=== PATIENT | male | born 1990 | race Asian ===

== ENCOUNTER 2020-07-14 18:12 | Emergency (ER) | payer OTHER ==
[~2020-07-14] VITALS: Ht 188 cm; Wt 111.1 kg
[2020-07-14 18:12] VITALS: BP 147/83
[2020-07-14] MEDS ORDERED: PROPARACAINE 0.5% OPHTH SOL 15ML OS ONE (20:00)
[2020-07-14] MEDS ORDERED: FLUORESCEIN OPHTH 1 MG STRIP OS ONE (20:00)
[2020-07-14] MEDS ORDERED: DICLOXACILLIN 250 MG CAP PO STA (20:13)
[2020-07-14] MEDS ORDERED: TOBRAMYCIN 0.3% OPHTH OINT 3.5 GM OS STA (20:13)
[2020-07-14] MEDS ORDERED: TOBR3OI OP (20:19)
[2020-07-14] MEDS ORDERED: DICL500C PO (20:19)
== END 2020-07-14 20:41 | disposition home or self-care (01) ==
LOC: M ED 18:14
DX: H00.016 Hordeolum externum left eye, unspecified eyelid (principal); L03.213 Periorbital cellulitis

== ENCOUNTER 2020-10-04 11:24 | Emergency (ER) | payer OTHER ==
[~2020-10-04] VITALS: Ht 182.9 cm; Wt 72.7 kg
[~2020-10-04 11:24] MED LIST: DICL500C PO; TOBR3OI OP
[2020-10-04] MEDS ORDERED: GI COCKTAIL 50ML BTL(HYOSCYAMINE/MAALOX/LIDOCAINE VISCOUS)(1:3:1) PO ONE (12:15)
[2020-10-04] MEDS ORDERED: ONDANSETRON 4 MG ORAL DISINTEGRATING TAB PO ONE (12:20)
[2020-10-04 12:59] LABS: BASO % 0.4 % (0.0-1.0); EOS # 0.1 10^3/uL (0.0-0.5); EOS % 0.4 % (0.0-3.0); HEMOGLOBIN 15.4 g/dl (13.5-17.5); LYMPH # 1.1 10^3/uL (1.5-5.0); LYMPH % 9.9 % (24.0-44.0); MEAN CORPUSCULAR HEMOGLOBIN 29.5 pg (27.0-33.0); MEAN CORPUSCULAR HGB CONC 32.1 g/dl (32.0-36.5); MONO # 0.7 10^3/uL (0.0-0.8); NEUTROPHILS # 9.3 10^3/uL (1.5-8.5); NEUTROPHILS % 82.5 % (36.0-66.0); PLATELET COUNT, AUTOMATED 246 10^3/uL (150-450); RED BLOOD COUNT 5.22 10^6/uL (4.30-6.10); WHITE BLOOD COUNT 11.3 10^3/uL (4.0-10.0)
[2020-10-04 13:43] LABS: ALT/SGPT 77 U/L (12-78); BILIRUBIN,DIRECT 0.1 MG/DL (0.0-0.2); BILIRUBIN,TOTAL 0.5 MG/DL (0.2-1.0); BLOOD UREA NITROGEN 13 MG/DL (7-18); CALCIUM LEVEL 9.1 MG/DL (8.5-10.1); CARBON DIOXIDE LEVEL 31 MEQ/L (21-32); CHLORIDE LEVEL 104 MEQ/L (98-107); CREATININE FOR GFR 0.82 MG/DL (0.70-1.30); GLOMERULAR FILTRATION RATE > 60.0 (>60); GLUCOSE, FASTING 120 MG/DL (70-100); LIPASE 59 U/L (73-393); POTASSIUM SERUM 4.6 MEQ/L (3.5-5.1); SODIUM LEVEL 139 MEQ/L (136-145); TOTAL PROTEIN 7.7 GM/DL (6.4-8.2)
[2020-10-04] MEDS ORDERED: ZOFR4TAB16 PO (13:51)
[2020-10-04 14:08] VITALS: BP 112/76
== END 2020-10-04 14:00 | disposition home or self-care (01) ==
LOC: M ED 11:24
DX: R11.2 Nausea with vomiting, unspecified (principal); T50.Z95A Adverse effect of other vaccines and biological substances, initial encounter; X58.XXXA Exposure to other specified factors, initial encounter; Y92.89 Other specified places as the place of occurrence of the external cause; G89.29 Other chronic pain; M54.9 Dorsalgia, unspecified; F17.210 Nicotine dependence, cigarettes, uncomplicated
CPT/HCPCS: 36415; 80048; 80076; 83690; 85025; 99283; Q0162